=== PATIENT | female | born 2000 | race Caucasian/White ===

== ENCOUNTER 2024-11-24 23:38 | Emergency (ER) | payer BC, MEDICAID, OTHER ==
[2024-11-24 23:51] VITALS: BP 119/71; PULSE 83
== END 2024-11-25 00:10 | disposition home or self-care (01) ==
LOC: VM.ED 23:38
DX: S69.91XA Unspecified injury of right wrist, hand and finger(s), initial encounter (principal); Z88.0 Allergy status to penicillin; Z88.1 Allergy status to other antibiotic agents; Z79.899 Other long term (current) drug therapy; W23.1XXA Caught, crushed, jammed, or pinched between stationary objects, initial encounter; Y93.89 Activity, other specified
CPT/HCPCS: 73140-F9; 99283